=== PATIENT | female | born 1985 | race Caucasian/White ===

== ENCOUNTER 2020-01-30 05:24 | Emergency (ER) | payer BC ==
[~2020-01-30] VITALS: Ht 170.2 cm; Wt 104.9 kg
[2020-01-30 05:27] VITALS: Ht 170.2 cm; Wt 104.9 kg
[2020-01-30 07:19] LABS: BASOPHIL % 0.1 % (0-2); PLATELET COUNT 321 x10^3mcL (130-400)
[2020-01-30 07:22] LABS: RED CELL DISTRIBUTION WIDTH 15.1 % (11.5-14.5)
[2020-01-30 07:25] LABS: CALCIUM 9.4 mg/dL (8.5-10.1); CARBON DIOXIDE 25.3 mmol/L (21-32); CHLORIDE SERUM 107 mmol/L (98-107); CREATININE SERUM 0.7 mg/dL (0.6-1.0); GFR1 > 60 mL/min; GLUCOSE SERUM 116 mg/dL (74-106); POTASSIUM SERUM 3.9 mmol/L (3.5-5.1); SODIUM SERUM 142 mmol/L (136-145)
[2020-01-30 07:29] LABS: ALKALINE PHOSPHATASE 108 U/L (46-116); ALT/SGPT 145 U/L (14-59); AST/SGOT 276 U/L (15-37); LIPASE 114 IU/L (73-393); TOTAL PROTEIN, SERUM 6.9 g/dL (6.4-8.2)
[2020-01-30 07:31] LABS: ALBUMIN 3.3 g/dL (3.4-5.0)
[2020-01-30 10:15] VITALS: BP 127/69
== END 2020-01-30 10:15 | disposition home or self-care (01) ==
LOC: ED 05:24
PROVIDERS: Specialist
DX: R07.89 Other chest pain (principal); K62.89 Other specified diseases of anus and rectum
CPT/HCPCS: 36415; Q0092